=== PATIENT | female | born 1955 | race Caucasian/White ===

== ENCOUNTER 2022-09-09 16:30 | Emergency (ER) | payer BC ==
[2022-09-09 18:05] LABS: Actual Bicarbonate (HCO3v) 25 mEq/L (22-28); Base Excess -0.7 mEq/L (-2.0 to +3.0); Calcium, Ionized (venous) 1.16 mmol/L (1.16-1.32); Chloride (VBG) 104 mmol/L (98-106); Hemoglobin (Hb) 13.4 g/dL (11.7-16.1); Potassium (VBG) 3.87 mmol/L (3.70-5.30); Puncture Site Other Site; RapidComm Collect By CBN; Sodium 136.8 mmol/L (133-146); pH (venous) 7.36 (7.32-7.43)
[2022-09-09 18:11] LABS: #Basophils 0.1 10x3/uL (0.0-0.2); #Eosinphils 0.4 10x3/uL (0.0-0.5); #Monocytes 1.2 10x3/uL (0.0-1.1); #Neutrophils 4.5 10x3/uL (1.5-8.4); %Basophils 0.9 % (0.0-2.0); %Eosinophils 5.1 % (0.0-6.0); %Monocytes 14.7 % (0.0-10.0); %Neutrophils 54.7 % (40.0-75.0); Hemoglobin 12.3 g/dL (12.0-15.5); Mean Corpuscular HGB CONC 35.7 g/dL (32.0-36.0); Mean Corpuscular Hemoglobin 31.2 pg (27.0-33.0); Mean Corpuscular Volume 87.6 fl (81.6-98.3); Mean Platelet Volume 9.4 fl (7.4-10.4); Platelet Count 337 10x3/uL (150-450); RBC Distribution Width 11.8 % (11.5-14.5); Red Blood Cell (RBC) Count 3.94 10x6/uL (3.90-5.03); White Blood Cell (WBC) Count 8.2 10x3/uL (3.5-10.5)
[2022-09-09 18:20] LABS: ALT (SGPT) 46 U/L (8-55); AST (SGOT) 36 U/L (5-34); Albumin 4.5 g/dL (3.4-4.8); Alkaline Phosphatase 147 U/L (40-110); Anion Gap 14 mmol/L (10-20); BUN (Urea Nitrogen) 10 mg/dL (9.8-20.1); Bilirubin, Total 0.5 mg/dL (0.2-1.2); Calc. Creatinine Clearance 0 mL/min (70-130); Calcium 9.5 mg/dL (7.8-10.44); Carbon Dioxide 25 mmol/L (23-31); Chloride 105 mmol/L (98-107); Estimated GFR 61; Globulin 2.7 g/dL (2.4-3.5); Glucose 130 mg/dL (80-115); Magnesium 2.2 mg/dL (1.6-2.6); Phosphorus 3.3 mg/dL (2.3-4.7); Potassium 4.1 mmol/L (3.5-5.1); Protein, Total 7.2 g/dL (5.8-8.1); Sodium 140 mmol/L (136-145)
== END 2022-09-09 19:43 | disposition home or self-care (01) ==
LOC: CSHERS 16:30
DX: E11.65 Type 2 diabetes mellitus with hyperglycemia (principal); E11.10 Type 2 diabetes mellitus with ketoacidosis without coma; E78.00 Pure hypercholesterolemia, unspecified; I10 Essential (primary) hypertension
CPT/HCPCS: 36415; 80053; 82010; 82805; 83735; 84100; 85025; 99284